=== PATIENT | female | born 1990 | race Caucasian/White ===

== ENCOUNTER 2017-02-06 08:45 | Emergency (ER) | payer OTHER ==
[~2017-02-06] VITALS: Ht 165.1 cm; Wt 59.0 kg
[~2017-02-06 08:45] MED LIST: EPIPEN 2-PAK1 MG/ML IM; HYDROXYZINE50 MG PO; MINASTRIN 24 FE1 KIT PO; PREDNISONE10 MG PO
--- NOTE | 2017-02-06 08:57 | ED SKIN/ALLERGY COMPLAINT ---
History of Present Illness General Chief Complaint: Allergy Symptoms Stated Complaint: ALLERGIC REACTION Source: patient, old records Exam Limitations: no limitations Vital Signs & Intake/Output Vital Signs & Intake/Output Vital Signs Date Time Temp Pulse Resp B/P Pulse O2 O2 Flow FiO2 Ox Delivery Rate 02/06 1048 97.0 66 20 117/67 98 Room Air 02/06 0959 98.0 59 20 116/65 100 Room Air 02/06 0849 97.5 66 14 134/83 99 Room Air Allergies Coded Allergies: ibuprofen (From Motrin) (HIVES 02/06/17) Reconcile Medications Epinephrine (Epipen 2-Brandon Auto-Injector) 1 MG/ML KIT 0.3 mg IM PRN PRN ANAPHYLAXIS Epinephrine (Epipen 2-Brandon) 0.3 MG/0.3 ML AUTO.INJCT 1 PEN IM ONCE PRN ANAPHYLAXIS Hydroxyzine Hydrochloride (Hydroxyzine) 50 MG TAB 1 TAB PO TID PRN ITCHING NORETHINDRONE-E.ESTRADIOL-IRON (Minastrin 24 Fe Chewable Tab) 1 MG-20 MCG (24)/ 75 MG (4) TAB.CHEW 1 TAB PO DAILY BIRTHCONTROL (Reported) Prednisone 10 MG TABLET 1 TAB PO DAILY ALLERGIC REACION 4 TABS PO DAY 1 3 TABS PO DAY 2 2 TABS PO DAY 3 1 TAB PO DAY 4 Prednisone 10 MG TABLET 6 TAB PO DAILY ALLERGIC REACTION Prednisone 10 MG TABLET 5 TAB PO DAILY ALLERGIC REACTION Triage Note: 26 Y/O FEMALE C/O ALLERGIC REACTION TO UNKNOWN SOURCE. STATES SHE WAS DRIVING TO WORK AND BEGAN TO FEEL ITCHY THROAT AND SWOLLEN LIPS. TOOK 25MG BENADRYL AND CAME TO ED. SOME SWELLING NOTED TO UPPER LIP. SPEAKING CLEARLY WITH NO DISTRESS NOTED. NO TONGUE SWELLING. NO VISIBLE HIVES OR RASHES PRESENT. TAKEN TO ROOM 11 FOR EVAL Triage Nurses Notes Reviewed? yes : No Patient currently breastfeeds: No HPI: Patient is a 26-year-old female presents complaining of lip swelling and facial pruritus. Symptoms onset while driving to work approximately 30 minutes ago. Patient took 25 mg of Benadryl approximately 20 minutes ago with mild improvement. Mild throat swelling sensation which has improved since taking Benadryl. Symptoms are currently mild to moderate. Patient has previously seen an razor sharpener, has an EpiPen. Patient did not have breakfast this morning, denies any new skin contacts or medications. Patient denies tongue swelling, dyspnea, chest pain, nausea, vomiting. (JOSH GALEAS) Past History Travel History Traveled to [place] past 21 day No Medical History Any Pertinent Medical History? 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 No (JOSH GALEAS) Review of Systems Review of Systems Constitutional: Denies: chills, fever. EENTM: Reports: throat swelling (improving). Respiratory: Denies: cough, short of breath. Cardiovascular: Denies: chest pain, syncope. GI: Denies: abdominal pain, nausea, vomiting. Musculoskeletal: Reports: no symptoms. Skin: Reports: see HPI. Neurological/Psychological: Reports: no symptoms. Hematologic/Endocrine: Reports: no symptoms. Immunologic/Allergic: Reports: no symptoms. (JOSH GALEAS) Physical Exam Physical Exam General Appearance: well developed/nourished, alert, awake Head: minimal upper lip edema. No urticaria Eyes: Bilateral: normal appearance, PERRL, EOMI. Ears, Nose, Throat: minimal right pharyngeal erythema. No tongue, uvula, pharyngeal edema Neck: normal inspection, supple, full range of motion Respiratory: normal breath sounds, chest non-tender, no respiratory distress, lungs clear Cardiovascular: regular rate/rhythm Gastrointestinal: soft, non-tender Back: normal inspection, normal range of motion Extremities: normal inspection, normal capillary refill, normal range of motion, no edema Neurologic/Psych: no motor/sensory deficits, awake, alert, oriented x 3, normal gait Skin: no urticaria (JOSH GALEAS) Progress Differential Diagnosis: allergic reaction, anaphylaxis, angioedema Plan of Care: Current Medications Sig/Vincent Start time Last Medication Dose Stop Time Status Admin Diphenhydramine HCl 25 MG ONCE ONE 02/06 915 UNVr (Benadryl) 02/07 916 Methylprednisolone 125 MG ONCE ONE 02/06 915 UNVr (Solu Medrol) 02/07 91602/06/2017 10:05:35 AM: Patient reevaluated, reports symptoms gradually improving. Patient reexamined. No apparent angioedema, no signs of anaphylaxis. 02/06/2017 11:13:31 AM: Patient feeling improved. No signs of anaphylaxis. Patient appears stable for discharge. (JOSH GALEAS) Departure Departure Time of Disposition: 1108 Disposition: HOME OR SELF CARE Condition: Stable Clinical Impression Primary Impression: Allergic reaction Qualifiers: Encounter type: initial encounter Qualified Code: T78.40XA - Allergy, unspecified, initial encounter Referrals: AGGIE HALL,DARNELL Nair (PCP/Family) Additional Instructions: Follow-up with your primary care doctor or your razor sharpener. Take Benadryl every 6 hours as directed over the next 24 hours. Return to the emergency department [place], throat swelling, difficulty breathing, or worsening of symptoms. Departure Forms: Customer Survey General Discharge Information Prescriptions: Current Visit Scripts Epinephrine (Epipen 2-Brandon) 1 PEN IM ONCE PRN ANAPHYLAXIS #2 PEN Prednisone 5 TAB PO DAILY #10 TAB (JOSH GALEAS) PA/COMPENSATION VICE PRESIDENT Co-Sign Statement Statement: ED Attending supervision documentation- [X] I saw and evaluated the patient. I have also reviewed all the pertinent lab results and diagnostic results. I agree with the findings and the plan of care as documented in the PA's/COMPENSATION VICE PRESIDENT's documentation. [] I have reviewed the ED Record and agree with the PA's/COMPENSATION VICE PRESIDENT's documentation. [] Additions or exceptions (if any) to the PAs/COMPENSATION VICE PRESIDENT's note and plan are summarized below: [] (FIDELIA BARRY DO
[2017-02-06 10:48] VITALS: BP 117/67
[2017-02-06] MEDS ORDERED: PREDNISONE10 M2 PO (11:11)
[2017-02-06] MEDS ORDERED: EPIPEN 2-P0.3 MG/0.3 IM (11:11)
== END 2017-02-06 11:17 ==
LOC: ERH 08:45
DX: T78.40XA Allergy, unspecified, initial encounter (principal)
CPT/HCPCS: 96374; 96375; J1200; J2930